=== PATIENT | female | born 1940 | race Caucasian/White ===

== ENCOUNTER 2016-06-04 18:58 | Inpatient (IN) | payer OTHER ==
[~2016-06-04] VITALS: Ht 165.1 cm; Wt 93.9 kg
[~2016-06-04 18:58] MED LIST: ASPIRIN325 MG PO; ATORVASTATIN CA80 MG PO; FUROSEMIDE40 MG PO; LEVOTHYROXINE137 MCG PO; LISINOPRIL5 MG PO; METOPROLOL TART25 MG PO
[2016-06-04 19:38] LABS: HEMATOCRIT 41.6 % (36.0-46.0); MCH 26.6 PG (29.0-34.0); MCHC 31.7 G/DL (30.0-36.0); MCV 83.9 FL (83-99); PLATELET COUNT 135 K/uL (156-360); RBC DIS.WIDTH-CV 14.2 % (11.8-14.6); RBC DIS.WIDTH-SD 43.2 % (39-53); RED BLOOD COUNT 4.96 M/uL (3.80-5.20); WHITE BLOOD COUNT 5.5 K/uL (4.1-10.2)
[2016-06-04 19:48] LABS: CHLORIDE 103 mEq/L (99-109); POTASSIUM 4.2 mEq/L (3.7-5.4); SODIUM 132 mEq/L (136-147)
[2016-06-04 19:49] LABS: GLUCOSE 119 mg/dL (70-99)
[2016-06-04 19:51] LABS: ANION GAP 9 MEQ/L (2-14)
[2016-06-04 19:53] LABS: GFR ESTIMATE (CALCULATED) 51 mL/min/
[2016-06-04 19:54] LABS: UREA NITROGEN (BUN) 16 mg/dL (9-23)
[2016-06-04 20:02] LABS: TROP-I INTERPRETATION NEGATIVE; TROPONIN-I 0.15 ng/mL (0.0-0.30)
[2016-06-04 20:53] LABS: BASE EXCESS 0.1 mEq/L (-3 to +3); BICARBONATE 24.7 mEq/L (22-26); CARBOXY HGB 2.1 % (0-5); PCO2 39 mm Hg (35-45); PO2 73 mm Hg (80-100); pH 7.41 (7.35-7.45)
[2016-06-04 20:54] LABS: COMMENTS - BLOOD GASES A+C+; DEVICE NC; O2 FLOW 2 L/MIN; SITE RR
[2016-06-04] MEDS ORDERED: ATORVASTATIN CA40 MG PO (22:27)
[2016-06-05] VITALS (7 sets, daily range): BP systolic 110–133; BP diastolic 56–74
[2016-06-06 04:00] VITALS: BP 114/54
[2016-06-06 07:04] LABS: HEMATOCRIT 38.3 % (36.0-46.0); MCH 26.5 PG (29.0-34.0); MCHC 31.6 G/DL (30.0-36.0); MEAN PLAT.VOLUME 11.1 uM^3 (9.5-12.4); PLATELET COUNT 125 K/uL (156-360); RBC DIS.WIDTH-CV 14.5 % (11.8-14.6); RBC DIS.WIDTH-SD 44.3 % (39-53); RED BLOOD COUNT 4.56 M/uL (3.80-5.20)
[2016-06-06 07:11] LABS: WHITE BLOOD COUNT 3.7 K/uL (4.1-10.2)
[2016-06-06 07:25] VITALS: BP 122/57
[2016-06-06 07:25] LABS: ALKALINE PHOSPHATASE 70 IU/L (3-129); ANION GAP 9 MEQ/L (2-14); CHLORIDE 102 MEQ/L (99-109); GFR ESTIMATE (CALCULATED) 51 mL/min/; GLUCOSE 90 mg/dL (70-99); POTASSIUM 4.2 MEQ/L (3.7-5.4); SAMPLE HEMOLYSIS CHECK 0; SAMPLE ICTERIC CHECK 0; SAMPLE LIPEMIA CHECK 0; SODIUM 138 MEQ/L (136-147); TOTAL BILIRUBIN 0.5 MG/DL (0.0-1.0); UREA NITROGEN (BUN) 23 mg/dL (9-23)
[2016-06-06 10:41] VITALS: BP 100/51
[2016-06-06 17:00] VITALS: BP 139/75
[2016-06-06 20:00] VITALS: BP 108/62
[2016-06-07] VITALS: BP 101/68
[2016-06-07 04:00] VITALS: BP 131/61
[2016-06-07 09:00] VITALS: BP 126/60
[2016-06-07 13:15] VITALS: BP 128/85
[2016-06-07 13:23] LABS: C DIFF TOXIN NEGATIVE (NEGATIVE)
[2016-06-07 13:24] LABS: PROBE CHECK PASS; SPECIMEN PROCESSING CONTROL PASS
[2016-06-07 16:54] VITALS: BP 131/63
[2016-06-07 20:00] VITALS: BP 116/57
[2016-06-08] VITALS: BP 118/58
[2016-06-08 03:12] VITALS: BP 131/75
[2016-06-08 09:01] VITALS: BP 131/87
[2016-06-08 15:49] VITALS: BP 130/64
[2016-06-08 19:20] VITALS: BP 131/58
[2016-06-08] MEDS ORDERED: KLOR-CON SPRIN10 MEQ PO (19:48)
[2016-06-08] MEDS ORDERED: VENTOLIN HFA18 GM IH (19:50)
[2016-06-08] MEDS ORDERED: LEVAQUIN500 MG PO (19:53)
[2016-06-08] MEDS ORDERED: LASIX40 MG PO (19:53)
[2016-06-08] MEDS ORDERED: ROBITUSSIN AC,T10 ML PO (19:53)
== END 2016-06-08 20:48 | disposition home or self-care (01) | DRG 195 ==
LOC: EME 18:58 → EDOF 23:09 → 5WEST 23:09 → EDOF 23:09 → 5WEST 06-05 01:23
PROVIDERS: Emergency Medicine; Internal Medicine
DX: J18.9 Pneumonia, unspecified organism (principal); I50.9 Heart failure, unspecified; I25.10 Atherosclerotic heart disease of native coronary artery without angina pectoris; R09.02 Hypoxemia; I10 Essential (primary) hypertension; E78.5 Hyperlipidemia, unspecified; E66.9 Obesity, unspecified; E03.9 Hypothyroidism, unspecified; E78.00 Pure hypercholesterolemia, unspecified; Z79.82 Long term (current) use of aspirin; Z68.34 Body mass index [BMI] 34.0-34.9, adult; Z95.2 Presence of prosthetic heart valve; Z98.61 Coronary angioplasty status
CPT/HCPCS: 36600; 71020; 80048; 80053; 82803; 83605; 83880; 84484; 85027; 87040; 87493; 93005; 94640; 94640 76; 94760; 94799; 99202; 99281; 99285; G0378; J0456; J0696; J1650; J1940; J7050; J7512

== ENCOUNTER 2016-09-02 06:36 | Emergency (ER) | payer OTHER ==
[~2016-09-02] VITALS: Ht 165.1 cm; Wt 94.1 kg
[~2016-09-02 06:36] MED LIST changes: +ATORVASTATIN CA40 MG PO; +KLOR-CON SPRIN10 MEQ PO; +LASIX40 MG PO; +LEVAQUIN500 MG PO; +ROBITUSSIN AC,T10 ML PO; +VENTOLIN HFA18 GM IH
[2016-09-02 07:42] LABS: HEMATOCRIT 40.2 % (36.0-46.0); MCH 27.4 PG (29.0-34.0); MCHC 31.6 G/DL (30.0-36.0); MCV 86.8 FL (83-99); MEAN PLAT.VOLUME 11.2 uM^3 (9.5-12.4); PLATELET COUNT 125 K/uL (156-360); RBC DIS.WIDTH-CV 15.4 % (11.8-14.6); RBC DIS.WIDTH-SD 49.1 % (39-53); RED BLOOD COUNT 4.63 M/uL (3.80-5.20); WHITE BLOOD COUNT 6.1 K/uL (4.1-10.2)
[2016-09-02 07:50] LABS: CHLORIDE 111 mEq/L (99-109); POTASSIUM 4.1 mEq/L (3.7-5.4); SODIUM 143 mEq/L (136-147)
[2016-09-02 07:52] LABS: GLUCOSE 108 mg/dL (70-99)
[2016-09-02 07:53] LABS: ANION GAP 7 MEQ/L (2-14)
[2016-09-02 07:56] LABS: GFR ESTIMATE (CALCULATED) 51 mL/min/
[2016-09-02 07:57] LABS: UREA NITROGEN (BUN) 27 mg/dL (9-23)
[2016-09-02 08:52] LABS: TROP-I INTERPRETATION NEGATIVE; TROPONIN-I 0.04 ng/mL (0.0-0.30)
[2016-09-02 10:07] VITALS: BP 160/74
== END 2016-09-02 10:08 | disposition home or self-care (01) ==
LOC: EME 06:36
DX: I11.0 Hypertensive heart disease with heart failure (principal); I50.9 Heart failure, unspecified; E78.5 Hyperlipidemia, unspecified; Z79.82 Long term (current) use of aspirin
CPT/HCPCS: 71020; 80048; 84484; 85027; 93005; 99281; 99283

== ENCOUNTER 2016-11-02 15:09 | Emergency (ER) | payer OTHER ==
[~2016-11-02] VITALS: Ht 165.1 cm; Wt 90.9 kg
[2016-11-02 16:05] LABS: ADD MIUA? YES; BILIRUBIN NEGATIVE; BLOOD NEGATIVE; COLOR AMBER ((YELLOW)); GLUCOSE (STRIP) NEGATIVE; KETONES NEGATIVE; LEUKOCYTES MODERATE; NITRITE NEGATIVE; PROTEIN (STRIP) NEGATIVE; SPECIFIC GRAVITY 1.023 (1.000-1.030)
[2016-11-02 16:11] LABS: BACTERIA NONE SEEN /HPF; EPITHELIAL CELLS 1+ /HPF; MUCUS 2+ /LPF; RED BLOOD CELLS 0-5 /HPF (0-5); UCUL ADDED? YES
[2016-11-02 16:27] LABS: HEMATOCRIT 41.4 % (36.0-46.0); MCH 28.7 PG (29.0-34.0); MCHC 32.6 G/DL (30.0-36.0); MCV 87.9 FL (83-99); MEAN PLAT.VOLUME 11.1 uM^3 (9.5-12.4); PLATELET COUNT 115 K/uL (156-360); RBC DIS.WIDTH-CV 13.4 % (11.8-14.6); RBC DIS.WIDTH-SD 43.5 % (39-53); RED BLOOD COUNT 4.71 M/uL (3.80-5.20); WHITE BLOOD COUNT 4.5 K/uL (4.1-10.2)
[2016-11-02 16:31] LABS: CHLORIDE 107 mEq/L (99-109); POTASSIUM 4.1 mEq/L (3.7-5.4); SODIUM 138 mEq/L (136-147)
[2016-11-02 16:33] LABS: GLUCOSE 91 mg/dL (70-99)
[2016-11-02 16:34] LABS: ANION GAP 10 MEQ/L (2-14)
[2016-11-02 16:35] LABS: TOTAL BILIRUBIN 0.8 mg/dL (0.0-1.0)
[2016-11-02 16:36] LABS: ALKALINE PHOSPHATASE 77 IU/L (3-129)
[2016-11-02 16:37] LABS: GFR ESTIMATE (CALCULATED) 51 mL/min/
[2016-11-02 16:38] LABS: UREA NITROGEN (BUN) 21 mg/dL (9-23)
[2016-11-02 16:56] LABS: LIPASE 16 U/L (1.0-51.0)
[2016-11-02 19:32] LABS: C DIFF TOXIN POSITIVE (NEGATIVE)
[2016-11-02 19:34] LABS: PROBE CHECK PASS
[2016-11-02] MEDS ORDERED: ZOFRAN ODT4 MG PO (19:43)
[2016-11-02] MEDS ORDERED: BENTYL20 MG PO (19:43)
[2016-11-02] MEDS ORDERED: FLAGYL500 MG PO (19:43)
[2016-11-02 20:09] VITALS: BP 163/80
== END 2016-11-02 20:53 | disposition home or self-care (01) ==
LOC: EME 15:09
PROVIDERS: Physician Assistant
DX: A04.7 Enterocolitis due to Clostridium difficile (principal); I10 Essential (primary) hypertension; E78.5 Hyperlipidemia, unspecified; I25.10 Atherosclerotic heart disease of native coronary artery without angina pectoris; Z95.5 Presence of coronary angioplasty implant and graft; Z79.82 Long term (current) use of aspirin
CPT/HCPCS: 80053; 81003; 83605; 83690; 85027; 87086; 87493; 87506; 99281; 99284; J7030

== ENCOUNTER 2017-01-21 08:32 | Emergency (ER) | payer OTHER ==
[~2017-01-21] VITALS: Ht 165.1 cm; Wt 91.9 kg
[~2017-01-21 08:32] MED LIST changes: +BENTYL20 MG PO; +FLAGYL500 MG PO; +ZOFRAN ODT4 MG PO
[2017-01-21 09:36] LABS: EOSINOPHIL (%) 0.4 % (0-5); HEMATOCRIT 38.1 % (36.0-46.0); IMMATURE GRANULOCYTE (%) 0.2 % (0.0-0.7); INSTRUMENT ABS NEUTROPHIL CT 7.1 K/uL; LYMPHOCYTE COUNT 0.7 K/uL (1.0-2.8); MCH 28.5 PG (29.0-34.0); MEAN PLAT.VOLUME 11.5 uM^3 (9.5-12.4); MONOCYTE (%) 5.9 % (3-12); MONOCYTE COUNT 0.5 K/uL (0-0.8); NEUTROPHIL (%) 85.3 % (45-76); NEUTROPHIL COUNT 7.1 K/uL (1.8-6.4); PLATELET COUNT 131 K/uL (156-360); RBC DIS.WIDTH-CV 13.6 % (11.8-14.6); RBC DIS.WIDTH-SD 44.1 % (39-53); RED BLOOD COUNT 4.28 M/uL (3.80-5.20); WHITE BLOOD COUNT 8.3 K/uL (4.1-10.2)
[2017-01-21 09:47] LABS: CHLORIDE 109 mEq/L (99-109); POTASSIUM 4.2 mEq/L (3.7-5.4); SODIUM 139 mEq/L (136-147)
[2017-01-21 09:48] LABS: GLUCOSE 123 mg/dL (70-99)
[2017-01-21 09:50] LABS: ANION GAP 7 MEQ/L (2-14)
[2017-01-21 09:52] LABS: GFR ESTIMATE (CALCULATED) 57 mL/min/
[2017-01-21 09:53] LABS: UREA NITROGEN (BUN) 22 mg/dL (9-23)
[2017-01-21 09:57] LABS: TROP-I INTERPRETATION NEGATIVE; TROPONIN-I 0.03 ng/mL (0.0-0.30)
[2017-01-21 12:00] VITALS: BP 178/96
== END 2017-01-21 12:14 | disposition home or self-care (01) ==
LOC: EME 08:32
PROVIDERS: Emergency Medicine
DX: I11.0 Hypertensive heart disease with heart failure (principal); I50.9 Heart failure, unspecified; T50.1X6A Underdosing of loop [high-ceiling] diuretics, initial encounter; Z91.128 Patient's intentional underdosing of medication regimen for other reason; E78.5 Hyperlipidemia, unspecified; I25.10 Atherosclerotic heart disease of native coronary artery without angina pectoris; Z95.2 Presence of prosthetic heart valve; Z95.5 Presence of coronary angioplasty implant and graft
CPT/HCPCS: 71020; 80048; 83880; 84484; 85025; 87502; 93005; 99281; 99285; J1940